=== PATIENT | male | born 1940 | race Caucasian/White ===

== ENCOUNTER 2017-10-31 12:21 | Inpatient (IN) | payer MEDICARE, OTHER ==
[~2017-10-31] VITALS: Ht 175.3 cm; Wt 103.4 kg
[2017-10-31 13:09] LABS: Basophils # (auto) 0.1 uL; Basophils % (auto) 1.5 % (0.0-2.0); Eosinophils # (auto) 0.1 uL; Hematocrit 44.6 % (41.0-53.0); Hemoglobin 14.9 g/dL (13.5-17.5); Lymphocytes # (auto) 1.5 uL; Lymphocytes % (auto) 21.1 % (10.0-50.0); Mean Corpuscular Hemoglobin 31.9 pg (28.0-32.0); Mean Corpuscular Hgb Conc. 33.5 g/dL (32.0-36.0); Mean Corpuscular Volume 95.3 fL (80.0-100.0); Monocytes # (auto) 0.6 uL; Monocytes % (auto) 8.6 % (0.0-12.0); Neutrophils # (auto) 4.8 uL; Neutrophils % (auto) 66.8 % (37.0-80.0); Platelet Count (auto) 307 10^3/uL (140-450); Red Blood Cells 4.68 10^6/uL (4.5-5.90); Red Cell Distribution Width 14.4 % (11.8-14.3); White Blood Cell 7.1 10^3/uL (4.4-10.8)
[2017-10-31 13:32] LABS: Alanine Aminotransferase 24 U/L (16-61); Albumin 4.1 g/dL (3.4-5.0); Alkaline Phosphatase 67 U/L (45-117); Anion Gap 7 (5-15); Aspartate Aminotransferase 18 U/L (15-37); BUN/Creatinine Ratio 19.8; Bilirubin, Total 0.4 mg/dL (0.2-1.0); Blood Urea Nitrogen 19 mg/dL (7-18); Calcium 8.8 mg/dL (8.5-10.1); Carbon Dioxide 24 mmol/L (21-32); Chloride 109 mmol/L (98-107); GFR African American 97 mL/min; GFR Non-African American 80 mL/min; Glucose 90 mg/dL (74-106); Magnesium 2.4 mg/dL (1.6-2.6); Potassium 4.1 mmol/L (3.5-5.1); Sodium 140 mmol/L (136-145); Total Protein 7.9 g/dL (6.4-8.2)
[2017-10-31 14:04] LABS: Amylase 59 U/L (25-115); Lipase 129 U/L (73-393)
[2017-10-31 14:17] LABS: INR 1.03 (0.9-1.15); Partial Thromboplastin Time 26.3 sec (22.64-33.71); Prothrombin Time 11.2 sec (9.37-12.3)
[2017-10-31] MEDS ORDERED: GLYCERIN ADULT RECTAL SUPP PR ONE (18:15)
[2017-10-31] MEDS ORDERED: FLEET ENEMA(ADULT) 135 ML PR ONE ×3 (18:30→22:00)
[2017-10-31] MEDS ORDERED: MAGNESIUM CITRATE SOLUTION 300 ML BTL PO ONE (19:00)
[2017-10-31] MEDS ORDERED: SODIUM CHLORIDE 0.9% 1,000 ML IV SCH (21:48)
[2017-10-31] MEDS ORDERED: TEMAZEPAM 15 MG CAP PO PRN (22:00)
[2017-10-31] MEDS ORDERED: ACETAMINOPHEN 325 MG TAB PO PRN (22:00)
[2017-10-31] MEDS ORDERED: cloNIDine HCL 0.1 MG TAB PO PRN (22:00)
[2017-10-31 22:38] VITALS: BP 156/83
[2017-10-31] MEDS: DOCUSATE SOD 100 MG CAP PO SCH (23:22)
[2017-10-31] MEDS: ATORVASTATIN 20 MG TAB PO SCH (23:23)
[2017-10-31] MEDS: FAMOTIDINE 20 MG TAB PO SCH (23:23)
[2017-11-01] MEDS: HYDROcodone-ACET 5/325MG TAB PO PRN ×3 (01:25→09:55)
[2017-11-01 04:30] VITALS: BP 148/78
[2017-11-01 09:00] VITALS: BP 157/76
[2017-11-01] MEDS: FAMOTIDINE 20 MG TAB PO SCH ×2 (09:54→21:58)
[2017-11-01] MEDS: ASPirin 81 mg TAB PO SCH (09:55)
[2017-11-01] MEDS: DOCUSATE SOD 100 MG CAP PO SCH ×2 (09:55→21:57)
[2017-11-01] MEDS: ENOXAPARIN SOD 40 MG/0.4 ML SYRINGE SC SCH (10:00)
[2017-11-01] MEDS ORDERED: MAGNESIUM CITRATE SOLUTION 300 ML BTL PO ONE (10:15)
[2017-11-01] MEDS ORDERED: LOSA25TA9 PO (10:20)
[2017-11-01] MEDS ORDERED: ATEN50TA80 PO (10:23)
[2017-11-01] MEDS ORDERED: ATOR1TAB PO (10:23)
[2017-11-01] MEDS ORDERED: AML5T PO (10:23)
[2017-11-01] MEDS ORDERED: FENO134C PO (10:23)
[2017-11-01] MEDS ORDERED: FENO160T8 PO (10:23)
[2017-11-01] MEDS ORDERED: MORPHINE SULF INJ 2 MG/ML SYRINGE 1ML IV PRN (10:30)
[2017-11-01] MEDS ORDERED: NITROGLYCERIN 0.4 MG SL TAB SL PRN (10:30)
[2017-11-01 11:32] LABS: BUN/Creatinine Ratio 24.8; Magnesium 2.7 mg/dL (1.6-2.6); Potassium 3.9 mmol/L (3.5-5.1)
[2017-11-01 13:00] VITALS: BP 137/63
[2017-11-01] MEDS ORDERED: OPTISON 3ml Vial for INJ IV ONE (13:31)
[2017-11-01 17:26] VITALS: BP 120/76
[2017-11-01] MEDS: SODIUM CHLOR 0.9% PF (SALINE LOCK) 10ML VIAL IV SCH ×2 (17:51→21:57)
[2017-11-01] MEDS: LOSARTAN POTASSIUM 25 MG TAB PO SCH (21:57)
[2017-11-01] MEDS: ATORVASTATIN 20 MG TAB PO SCH (21:57)
[2017-11-01] MEDS ORDERED: METOPROLOL TARTRATE 25 MG TAB PO SCH (22:00)
[2017-11-01 22:02] VITALS: BP_SYST 121; BP_SYST 135; BP_DIAS 61; BP_DIAS 71
[2017-11-02 02:23] LABS: Urine Bacteria FEW /hpf (None Seen); Urine Blood 3+ /uL (Negative); Urine Mucus FEW (None Seen); Urine Specific Gravity 1.017 (1.001-1.035); Urine WBC 153 /hpf (0 - 3)
[2017-11-02 05:47] LABS: Cholesterol 115 mg/dL (< 200); HDL Cholesterol 38 mg/dL (40-59); LDL Cholesterol 71 mg/dL (< 100); Triglycerides 115 mg/dL (< 150)
[2017-11-02] MEDS: SODIUM CHLOR 0.9% PF (SALINE LOCK) 10ML VIAL IV SCH ×3 (05:55→22:57)
[2017-11-02 06:00] VITALS: BP 107/65
[2017-11-02 09:00] VITALS: BP 130/59
[2017-11-02] MEDS: DOCUSATE SOD 100 MG CAP PO SCH ×2 (12:09→22:57)
[2017-11-02] MEDS: LOSARTAN POTASSIUM 25 MG TAB PO SCH ×2 (12:12→22:57)
[2017-11-02] MEDS: ENOXAPARIN SOD 40 MG/0.4 ML SYRINGE SC SCH (12:12)
[2017-11-02] MEDS: FAMOTIDINE 20 MG TAB PO SCH ×2 (12:12→22:57)
[2017-11-02 13:00] VITALS: BP 139/67
[2017-11-02 17:00] VITALS: BP 143/70
[2017-11-02] MEDS ORDERED: TAMSULOSIN HYDROCHLORIDE 0.4 MG CAP PO SCH (18:00)
[2017-11-02] MEDS: ASPirin 81 mg TAB PO SCH (19:34)
[2017-11-02 22:00] VITALS: BP 137/64
[2017-11-02] MEDS: ATORVASTATIN 20 MG TAB PO SCH (22:56)
[2017-11-03 05:00] VITALS: BP 113/62
[2017-11-03] MEDS: SODIUM CHLOR 0.9% PF (SALINE LOCK) 10ML VIAL IV SCH ×2 (06:45→14:00)
[2017-11-03 09:00] VITALS: BP 114/60
[2017-11-03] MEDS: ASPirin 81 mg TAB PO SCH (09:33)
[2017-11-03] MEDS: DOCUSATE SOD 100 MG CAP PO SCH (09:34)
[2017-11-03] MEDS: ENOXAPARIN SOD 40 MG/0.4 ML SYRINGE SC SCH (09:35)
[2017-11-03] MEDS: LOSARTAN POTASSIUM 25 MG TAB PO SCH (09:35)
[2017-11-03] MEDS: FAMOTIDINE 20 MG TAB PO SCH (09:35)
[2017-11-03 13:00] VITALS: BP 142/65
[2017-11-03 15:18] VITALS: BP 142/65
== END 2017-11-03 16:32 | disposition home or self-care (01) | DRG 392 ==
LOC: ER 12:21 → OVERFLOW 12:22 → CENTRAL 22:38
PROVIDERS: ADMIT Nurse Practitioner; ATTEND Internal Medicine
DX: K57.32 Diverticulitis of large intestine without perforation or abscess without bleeding (principal); I44.7 Left bundle-branch block, unspecified; K76.89 Other specified diseases of liver; E78.5 Hyperlipidemia, unspecified; J98.11 Atelectasis; K59.00 Constipation, unspecified; K40.20 Bilateral inguinal hernia, without obstruction or gangrene, not specified as recurrent; I10 Essential (primary) hypertension; I25.10 Atherosclerotic heart disease of native coronary artery without angina pectoris; I25.2 Old myocardial infarction; I44.0 Atrioventricular block, first degree; I70.8 Atherosclerosis of other arteries; M46.00 Spinal enthesopathy, site unspecified; N40.1 Benign prostatic hyperplasia with lower urinary tract symptoms; R33.8 Other retention of urine; Z79.899 Other long term (current) drug therapy; Z82.49 Family history of ischemic heart disease and other diseases of the circulatory system; Z95.5 Presence of coronary angioplasty implant and graft; Z79.82 Long term (current) use of aspirin
CPT/HCPCS: 36415; 71045; 74176; 80048; 80053; 80061; 81001; 82150; 83690; 83735; 83880; 84484; 85025; 85379; 85610; 85730; 87086; 93005; 93306; 93970; 94761; Q9956

== ENCOUNTER 2019-04-09 09:27 | Emergency (ER) | payer MEDICARE, OTHER ==
[~2019-04-09] VITALS: Ht 177.8 cm; Wt 99.8 kg
[~2019-04-09 09:27] MED LIST: AML5T PO; ATEN50TA80 PO; ATOR1TAB PO; FENO134C PO; LOSA25TA40 PO
[2019-04-09 10:39] LABS: Urine Bacteria FEW /hpf (None Seen); Urine Blood 1+ /uL (Negative); Urine Specific Gravity 1.009 (1.001-1.035); Urine WBC 27 /hpf (0 - 3)
[2019-04-09 11:26] LABS: Basophils # (auto) 0.1 uL; Basophils % (auto) 1.3 % (0.0-2.0); Eosinophils # (auto) 0.1 uL; Eosinophils % (auto) 1.6 % (0.0-7.0); Hematocrit 41.2 % (41.0-53.0); Hemoglobin 14.2 g/dL (13.5-17.5); Lymphocytes # (auto) 1.4 uL; Lymphocytes % (auto) 20.2 % (10.0-50.0); Mean Corpuscular Hemoglobin 31.5 pg (28.0-32.0); Mean Corpuscular Hgb Conc. 34.5 g/dL (32.0-36.0); Mean Corpuscular Volume 91.5 fL (80.0-100.0); Monocytes # (auto) 0.6 uL; Monocytes % (auto) 9.3 % (0.0-12.0); Neutrophils # (auto) 4.5 uL; Neutrophils % (auto) 67.6 % (37.0-80.0); Platelet Count (auto) 273 10^3/uL (140-450); Red Cell Distribution Width 14.7 % (11.8-14.3); White Blood Cell 6.7 10^3/uL (4.4-10.8)
[2019-04-09 11:42] LABS: Albumin 3.9 g/dL (3.4-5.0); Chloride 104 mmol/L (98-107); Sodium 138 mmol/L (136-145)
[2019-04-09 11:46] LABS: Magnesium 2.2 mg/dL (1.6-2.6)
[2019-04-09 11:48] LABS: Alanine Aminotransferase 21 U/L (16-61); Alkaline Phosphatase 67 U/L (45-117); Anion Gap 9 (5-15); Aspartate Aminotransferase 19 U/L (15-37); BUN/Creatinine Ratio 24.3; Bilirubin, Total 0.6 mg/dL (0.2-1.0); Blood Urea Nitrogen 25 mg/dL (7-18); Calcium 8.8 mg/dL (8.5-10.1); Carbon Dioxide 25 mmol/L (21-32); GFR African American 89 mL/min; GFR Non-African American 74 mL/min; Glucose 96 mg/dL (74-106); Total Protein 7.5 g/dL (6.4-8.2)
[2019-04-09 12:00] VITALS: BP 132/46
[2019-04-09] MEDS ORDERED: cefTRIAXone 1GM/50ML D5W 50 ML IV ONE (12:00)
== END 2019-04-09 13:32 | disposition home or self-care (01) ==
LOC: EDBD 09:27 → EDSEX 09:27 → ER 09:27
DX: N39.0 Urinary tract infection, site not specified (principal); R33.9 Retention of urine, unspecified; I11.0 Hypertensive heart disease with heart failure; I50.9 Heart failure, unspecified; I25.2 Old myocardial infarction; F17.210 Nicotine dependence, cigarettes, uncomplicated; Z98.61 Coronary angioplasty status; Z79.899 Other long term (current) drug therapy
CPT/HCPCS: 36415; 51702; 74176; 80053; 81001; 83690; 83735; 84484; 85025; 93005; 94761; 96365; 99284; J0696